=== PATIENT | female | born 1945 | race Caucasian/White ===

== ENCOUNTER → 2016-12-03 | Outpatient (CLI) | payer MEDICARE, BC ==
--- NOTE | 2016-12-04 11:09 | RAD ---
DATE: 12/03/16 EXAM: MAMMO CHI DIAG LT HISTORY: Follow-up calcifications in the left breast COMPARISON: Diagnostic left mammogram from 06/01/16 and bilateral screening mammogram from 05/28/16 This study was interpreted with the benefit of Computerized Aided Detection (CAD ). TECHNIQUE: CC and MLO 2-D and 3-D mammograms as well as CC and MLO spot magnification views of the left breast also obtained. FINDINGS: Group of calcifications seen centrally in the left breast is redemonstrated without much change. There is no architectural distortion. IMPRESSION: Group of calcifications in the left breast is without much interval change. These are not clearly benign. A six-month follow-up bilateral mammogram would place the patient on routine annual schedule. Spot magnification CC and MLO views of the left breast may also be obtained at that time for close surveillance and interval change. If there is any change in the calcifications, stereotactic biopsy may be considered. BI-RADS CATEGORY: 3 PROBABLE BENIGN-SHORT TERM F/U RECOMMENDED FOLLOW-UP: 6 Months bilateral mammogram including spot magnification views PQRS compliance statement: Patient information was entered into a reminder system with a target due date for the next mammogram. Mammography is a sensitive method for finding small breast cancers, but it does not detect them all and is not a substitute for careful clinical examination. A negative mammogram does not negate a clinically suspicious finding and should not result in delay in biopsying a clinically suspicious abnormality. "Our facility is accredited by the [employer] Mammography [employer]." BALDOMEROD
== END | disposition home or self-care (01) ==
LOC: MAMMO 13:01
PROVIDERS: ATTEND Obstetrics & Gynecology
DX: R92.8 Other abnormal and inconclusive findings on diagnostic imaging of breast (principal)
CPT/HCPCS: G0206; G0279; 77061; 77065

== ENCOUNTER → 2017-06-03 | Outpatient (CLI) | payer MEDICARE, BC ==
--- NOTE | 2017-06-03 10:14 | RAD ---
DATE: 06/03/2017 EXAM: MAMMO CHI DIAG BILAT HISTORY: 6 month follow-up calcifications within the left breast. Yearly screening study of right breast. COMPARISON: 12/03/2016 and 06/01/2016 This study was interpreted with the benefit of Computerized Aided Detection (CAD). The breast parenchyma is heterogeneously dense, which could reduce sensitivity of mammography. Breast parenchyma level C. FINDINGS: Digital MLO and CC CC mammograms of both breasts were obtained. Additionally spot compression magnification MLO and 2 cc's mammograms of the left breast were obtained. Digital breast on the symphysis and (3D mammography) of both breasts in the MLO and CC projections were performed. Comparison studies are dated 12/03/2016 06/01/2016. The breast parenchyma is heterogeneously dense which can obscure a lesion on mammography (breast density code C). No spiculated mass is seen involving either breast. Vascular calcifications and benign-appearing calcifications are seen within both breasts. The grouped calcifications within the left breast have not significantly changed. They have a benign appearance. No malignant appearing calcification or area of architectural distortion is noted. Digital breast tomosymphysis images demonstrate no spiculated mass. No malignant appearing calcification is seen. Since the previous examination there has been no significant interval change. IMPRESSION: BI-RADS Category 2 benign findings. There is no mammographic evidence of malignancy. Routine yearly screening mammography is recommended for follow-up. BI-RADS CATEGORY: 2 BENIGN FINDING(S) RECOMMENDED FOLLOW-UP: 12M 12 MONTH FOLLOW-UP PQRS compliance statement: Patient information was entered into a reminder system with a target due date 06/03/2018 for the next mammogram. Mammography is a sensitive method for finding small breast cancers, but it does not detect them all and is not a substitute for careful clinical examination. A negative mammogram does not negate a clinically suspicious finding and should not result in delay in biopsying a clinically suspicious abnormality. "Our facility is accredited by the [employer] Mammography Program."
--- NOTE | 2017-06-03 10:46 | RAD ---
DEXA scan 06/03/2017 Clinical history: Risk factors for osteoporosis. Postmenopausal female. [employer] use age. Technique: DEXA of the lumbar spine and the right hip was performed. FINDINGS: The mean bone mineral density of the lumbar spine is 0.975 g/sq cm. This corresponds to a T score of -1.7. This is consistent with moderate osteopenia. This has decreased since the previous examination where it measured 1.040 g/sq cm.. The mean bone mineral density of the right hip is 0.812 g/sq cm. This corresponds to a T score of -1.6. This is consistent with moderate osteopenia. It has decreased since previous examination where measured 0.826 g/sq cm. IMPRESSION: Moderate osteopenia. The patient's mean bone mineral densities have decreased since the previous study. According to World Health Organization, the definition of osteoporosis and osteopenia for women is as follows: Normal = T score at or above -1.0 SD. Osteopenia = T score between -1.0 and -2.5 SD. Osteoporosis = T score at or below -2.5 SD.
== END | disposition home or self-care (01) ==
LOC: MAMMO 08:50
PROVIDERS: ATTEND Obstetrics & Gynecology
DX: M85.88 Other specified disorders of bone density and structure, other site (principal); R92.1 Mammographic calcification found on diagnostic imaging of breast; Z78.0 Asymptomatic menopausal state
CPT/HCPCS: 77080; G0204; G0279; 77062; 77066

== ENCOUNTER → 2017-06-18 | Outpatient (CLI) | payer MEDICARE, BC | END | disposition home or self-care (01) | LOC: LAB 13:42 | PROVIDERS: ATTEND Obstetrics & Gynecology | DX: M85.80 Other specified disorders of bone density and structure, unspecified site (principal) | CPT/HCPCS: 36415; 82310 ==

== ENCOUNTER → 2018-09-18 | Outpatient (CLI) | payer MEDICARE, BC ==
--- NOTE | 2018-09-18 10:05 | RAD ---
DATE: 09/18/2018 EXAM: MAMMO CHI SCREENING BILATERAL HISTORY: Routine screening. COMPARISON: Previous exam from 2017 and 2016. This study was interpreted with the benefit of Computerized Aided Detection (CAD). FINDINGS: Breast Density: HETERO The breast parenchyma Is heterogeneously dense, which could reduce sensitivity of mammography. Breast parenchyma level C. The skin and nipples are within normal limits. No suspicious calcifications, spiculated mass or areas of architectural distortion. Benign-appearing bilateral calcifications. IMPRESSION: No mammographic evidence of malignancy. Stable mammogram. BI-RADS CATEGORY: 2 BENIGN FINDING(S) RECOMMENDED FOLLOW-UP: 12M 12 MONTH FOLLOW-UP PQRS compliance statement: Patient information was entered into a reminder system with a target due date for the next mammogram. Mammography is a sensitive method for finding small breast cancers, but it does not detect them all and is not a substitute for careful clinical examination. A negative mammogram does not negate a clinically suspicious finding and should not result in delay in biopsying a clinically suspicious abnormality. "Our facility is accredited by the [employer] Mammography [employer]." No sonographic evidence of acute DVT of the interrogated lower extremity deep veins. No
== END | disposition home or self-care (01) ==
LOC: MAMMO 08:51
PROVIDERS: ATTEND Obstetrics & Gynecology
DX: Z12.31 Encounter for screening mammogram for malignant neoplasm of breast (principal)
CPT/HCPCS: 77063; 77067